=== PATIENT | female | born 1995 ===

== ENCOUNTER 2018-03-21 12:17 | Emergency (ER) | payer SELFPAY ==
[2018-03-21] MEDS ORDERED: Sodium Chloride 0.9% 10 ML Syringe FLUSH PRN (12:38)
[2018-03-21] MEDS ORDERED: fentaNYL 100 MCG/2 ML SDV IVPUSH ONE (12:38)
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
--- NOTE | 2018-03-21 14:06 | CT ---
Head wo Cont HISTORY: Trauma COMPARISON: None TECHNIQUE: Noncontrast enhanced axial cuts were obtained of the brain. Total DLP: 1231 FINDINGS:There is no cerebral or subdural hemorrhage. There is no mass effect or edema. The ventricle s and CSF spaces are appropriate for age. No space occupying lesions are demonstrated. The orbital st ructures are unremarkable. The sinuses demonstrate normal aeration. IMPRESSION: Negative exam.
--- NOTE | 2018-03-21 14:10 | CT ---
Facial CT. History: Trauma Technique: Axial images were obtained through the paranasal sinuses. Coronal images were reconstructe d. Total DLP: 1231 combined Findings: There is mild depression involving the anterior aspect of the maxilla. There is absence of the maxillary frontal incisors. There are are small chips of bone at this location. There is soft tis santino edema. There is a small amount of air within the soft tissues. The orbits are intact. The nasal b one is intact. There is normal aeration of the paranasal sinuses. Impression: 1. Mildly depressed fracture involving the anterior margin of the maxilla where the frontal incisors are noted to be absent.
--- NOTE | 2018-03-21 14:15 | CT ---
C-SPINE CT. HISTORY: Trauma TECHNIQUE: Axial cuts are obtained through the cervical spine. Sagittal and coronal images were recon structed. Total DLP: 1231 combined. FINDINGS: There is reversal of the normal lordotic curvature of the cervical spine. The cervical vertebrae demo nstrate normal alignment. The vertebral bodies are normal in height. The posterior elements are intac t. No posttraumatic findings are demonstrated. There are no findings of spinal or foraminal stenosis. The prevertebral soft tissues are normal in thickness. IMPRESSION: 1. Nonspecific reversal of the normal lordotic curvature. The finding may reflect positioning artifac t or underlying spasm. 2. No evidence for fracture.
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
[2018-03-21] MEDS ORDERED: Diphtheria,Pertussis(Acell),Tetanus Vaccine 0.5 ML SDV IM ONE (14:26)
[2018-03-21] MEDS ORDERED: Bacitracin Oint 1 GM U/D Packet TOP ONE (14:29)
[2018-03-21] MEDS ORDERED: Bacitracin Oint 28.35 GM Tube ONE (14:31)
[2018-03-21] MEDS ORDERED: Bupivacaine 0.5%/EPINEPHrine 1:200,000 1.8 ML Cartridge INJECT ONE (16:16)
[2018-03-21] MEDS ORDERED: Bacitracin Oint 28.35 GM Tube TOP SCH (21:00)
== END 2018-03-21 15:12 | disposition home or self-care (01) ==
LOC: JP.ED 12:17
DX: K08.119 Complete loss of teeth due to trauma, unspecified class (principal); S50.01XA Contusion of right elbow, initial encounter; S00.81XA Abrasion of other part of head, initial encounter; S50.812A Abrasion of left forearm, initial encounter; S50.811A Abrasion of right forearm, initial encounter; S60.512A Abrasion of left hand, initial encounter; S80.211A Abrasion, right knee, initial encounter; Z23 Encounter for immunization; V29.9XXA Motorcycle rider (driver) (passenger) injured in unspecified traffic accident, initial encounter
CPT/HCPCS: 36415; 70450; 70486; 72125; 73562; 80048; 84702; 84703; 85025; 90471; 90715; 96374; 99284; J3010; J7050